=== PATIENT | female | born 1960 | race Asian ===

== ENCOUNTER → 2024-09-16 | Day surgery (SDC) | payer MEDICAID ==
[~2024-09-16] MED LIST: DOCU-138 PO; DULO30CA2 PO; EMPA10TA PO; GABA-290 PO; LIDOCAINE HCL 1% 10 MG/ML 10ML VIAL ONE; LORA10TA7 PO; LOSA25TA26 PO; METF-414 PO; SODIUM BICARBONATE 4% 2.4MEQ/5ML VIAL IV ONE
== END | disposition home or self-care (01) ==
LOC: RAD 09:32 → EDUNIT# 10:00
PROVIDERS: ATTEND Specialist
DX: C77.3 Secondary and unspecified malignant neoplasm of axilla and upper limb lymph nodes (principal); R59.0 Localized enlarged lymph nodes; C50.919 Malignant neoplasm of unspecified site of unspecified female breast; Z79.84 Long term (current) use of oral hypoglycemic drugs; Z79.899 Other long term (current) drug therapy; Z98.890 Other specified postprocedural states
CPT/HCPCS: 10035; J3490 ×2; 19285; A4648

== ENCOUNTER → 2024-09-20 | Day surgery (SDC) | payer MEDICAID ==
[~2024-09-20] VITALS: Ht 152.4 cm; Wt 80.3 kg
[~2024-09-20] MED LIST changes: +BUPIVACAINE HCL/PF 0.5% (5MG/ML) 10ML ONE; +FENTANYL CITRATE/PF 50MCG/ML 5ML VIAL ONE; +HYDROMORPHONE HCL/PF 1MG/ML INJ IV PRN; +METHYLENE BLUE 50MG/10ML AMP IV ONE; +MIDAZOLAM HCL 2 MG/2 ML VIAL ONE; +ONDANSETRON HCL 4MG/2ML INJ IV PRN; +PROPOFOL 200MG/20ML VIAL IV ONE; -SODIUM BICARBONATE 4% 2.4MEQ/5ML VIAL IV ONE; +SODIUM CHLORIDE 0.9% 1,000 ML IV SCH
[2024-09-20 15:06] VITALS: BP 125/70; PULSE 98; RESP 17
[2024-09-20] MEDS: FENTANYL CITRATE/PF 50MCG/ML 2ML VIAL IV PRN (15:06)
== END | disposition home or self-care (01) ==
LOC: OR 07:14 → EDSTATUS 08:00
PROVIDERS: ATTEND Specialist
DX: C50.911 Malignant neoplasm of unspecified site of right female breast (principal); C77.3 Secondary and unspecified malignant neoplasm of axilla and upper limb lymph nodes; I10 Essential (primary) hypertension; M19.90 Unspecified osteoarthritis, unspecified site; E11.9 Type 2 diabetes mellitus without complications; Z17.421 Hormone receptor negative with human epidermal growth factor receptor 2 negative status; Z79.84 Long term (current) use of oral hypoglycemic drugs; Z79.899 Other long term (current) drug therapy; Z92.21 Personal history of antineoplastic chemotherapy; Z98.890 Other specified postprocedural states
CPT/HCPCS: 38525; 82962; 88305; 76098; 78195; J3010 ×2; J3490 ×2; Q9968; J2250; J2704